=== PATIENT | male | born 1975 | race Caucasian/White ===

== ENCOUNTER 2022-01-29 16:59 | Emergency (ER) | payer MEDICAID ==
[~2022-01-29] VITALS: Ht 180.3 cm; Wt 68.0 kg
[2022-01-29 17:27] VITALS: BP 120/74
[2022-01-29] MEDS ORDERED: LIDOcaine 1% W/epiNEPHrine 1:100,000 20ml vial SQ ONE (20:15)
[2022-01-29] MEDS ORDERED: ibuprofen 200mg tablet PO ONE (20:15)
[2022-01-29] MEDS ORDERED: LIDOcaine 1% w/EPI 1:100,000 30ml vial (MDV) IJ ONE (20:25)
[2022-01-29] MEDS ORDERED: TETanus/Pertussis (Acell)/Diphther VAC/PF (Tdap-Adult) 0.5ml syringe IMVAC ONE (21:55)
== END 2022-01-29 22:15 | disposition home or self-care (01) ==
LOC: ER 17:00
DX: S61.213A Laceration without foreign body of left middle finger without damage to nail, initial encounter (principal); W45.8XXA Other foreign body or object entering through skin, initial encounter; Y93.89 Activity, other specified; Y92.89 Other specified places as the place of occurrence of the external cause; Y99.8 Other external cause status
CPT/HCPCS: 12001; 90471; 90715; 99283; A6449

== ENCOUNTER 2024-11-07 12:29 | Emergency (ER) | payer MEDICAID ==
[~2024-11-07] VITALS: Ht 180.3 cm; Wt 72.7 kg
--- NOTE | 2024-11-07 12:46 | Physician Documentation ---
History of Present Illness ~ Chief Complaint: Rib pain Stated Complaint: PAIN/DIFF BREATHING Time Seen by MD: 13:35 OK to notify your PCP?: Yes Primary Medical Doctor: NONE Source: patient Mode of Arrival: POV Exam Limitations: no limitations HPI 49-year-old male presents with localized right lateral lower rib pain for the past day. He has not taken anything for pain relief before arrival. No known trauma to that area. Tetanus within 5 Years?: No Allergies: Coded Allergies: No Known Allergies (Unverified , 01/29/22) Active Prescriptions See Medication Reconciliation Form. Medication Reconciliation Scheduled Lidocaine (Lidocaine), 1 PATCH TOP DAILY Review of Systems All Other Systems at this time: Reviewed and Negative Physical Exam Vital Signs: RN Vital Signs have been reviewed: Yes, Temperature: 98.3, Heart Rate: 90, Respiratory Rate: 16, BP: 133/92, Pulse Oximetry: 99, Weight: 72.730 Oxygen Flow Rate: 0 Pulse Oximetry Reflects: adequate oxygenation Physical Exam General: Alert, no distress. HEENT: No injection, moist mucous membranes. Neck: Full range of motion. Respiratory: No respiratory distress, equal chest rise and fall. Chest: No accessory muscle use. Localized tenderness to palpation of right lateral ribcage near rib #11. Cardiovascular: Regular rate and rhythm. Gastrointestinal: Nondistended. Extremities: Normal range of motion, no deformity. Neurologic: Oriented x4. Psychiatric: Normal mood and affect. Skin: Normal color, warm and dry. Progress Results/Orders Reviewed/noted all lab results: Yes Results/Orders Orders - JENNIFER MARTINEZP Uni Ribs With Pa Chest (11/07/24 13:12) Completed Orders - JENNIFER MARTINEZ Ibuprofen Tablet (Motrin Tablet) (11/07/24 12:45) Uni Ribs With Pa Chest (11/07/24 13:12) Electrocardiogram (11/07/24 ) Lidocaine 5% Patch (Lidoderm 5% Patch) (11/07/24 14:10) Medications Received in ER Medications (Trade) Dose Ordered Sig/Mirella Route PRN Reason Start Time Stop Time Status Last Admin Dose Admin (Motrin tablet) 800 mg ONCE ONCE PO 11/07/24 12:45 11/07/24 12:46 DC 11/07/24 13:36 800 MG (Lidoderm 5% Patch) 1 patch ONCE ONCE TP 11/07/24 14:10 11/07/24 14:11 DC 11/07/24 14:21 1 PATCH Vital Signs 11/07/24 11/07/24 11/07/24 12:38 12:40 14:29 Temp 98.3 98.3 Pulse 90 74 Resp 16 16 B/P (MAP) 133/92 135/91 Pulse Ox 99 96 O2 Flow Rate 0 EKG/XRAY/CT/US/VASC/MRI EKG : Additional Comment Electrocardiogram: as interpreted by me; sinus tachycardia, no axis deviation, no acute ischemia, normal intervals, no pre-excitation pattern. Rate: 100 bpm. Chest X-Ray : Additional Comments Right ribs and Chest x-ray: as interpreted by me; no large effusion, no large infiltrate, normal mediastinum, no rib fracture or dislocation. Heart Score: Heart Score Response (Comments) Value History N/A 0 EKG Normal 0 Age <45 0 Risk Factors 1 or 2 risk factors 1 Troponin N/A 0 Total 1 Medical Decision Making Findings 41-year-old male with spontaneous point tenderness to right lower lateral rib near rib 11 which is worse with a deep breath. Physical exam is unremarkable except for the localized tenderness to palpation. EKG was normal. Rib x-rays were negative for fracture. He is not having any nausea vomiting or diarrhea. We discussed that this is likely musculoskeletal in nature and he can take Tylenol and/or ibuprofen for pain relief at home. I prescribed lidocaine patches that he can use directly at the site and we applied 1 while here in the department prior to discharge. He should follow up with his primary care provider and return back here for any new or worsening symptoms. Differential Dx:Considerations: Include: Chest wall contusion, Flail chest, Pneumothorax, Pulmonary contusion, Tension pneumothorax Departure Disposition: HOME / SELF CARE / HOMELESS Impression: Primary Impression: Rib pain Condition: Stable Discharge Instructions: Rib Contusion Additional Instructions: Can take Tylenol and/or ibuprofen for pain relief at home. Follow up with her primary care provider in the next 3 days and return back here for any new or worsening symptoms. Referrals: NO PRIMARY CARE PROVIDER (PCP) Prescriptions Lidocaine (Lidocaine) 5 % Adh..patch 1 PATCH TOP DAILY for 5 Days, #5 PATCH 0 Refills Prov: JENNIFER MARTINEZ CLAY ARTIST 11/07/24 Education Educated: Patient Educated regarding: diagnosis, treatment, prognosis, need for follow up Additional Comment Medical Screen Exam This patient recieved a medical screening examination. After reviewing the individual's medical complaints with presenting symptoms and performing an appropriate physical examination, it was determined that no immediate life- threatening emergency medical condition is present. This individual is also not a women having contractions. Signature Scribe Signature: . Attestation: Scribed for Jennifer Martinez Medical Territory Manager by Jennifer Blake NP . 11/07/24 14:10 JENNIFER MARTINEZ CLAY ARTIST Nov 07, 2024 12:46
--- NOTE | 2024-11-07 12:47 | ELECTROCARDIOGRAPH REPORT ---
[facility] Test Date: 2024-11-07 Test Time: 12:33:37 Pat Name: LAUREN AVITIA Department: EMERGENCY ROOM Room: Gender: M Nursing Technician: DREA : 1975 Requested By: ELKIN NARANJO Order Number: [id number] Reading MD: Measurements Intervals [place] Rate: 100 P: 90 WV: 144 QRS: 74 QRSD: 81 T: 55 QT: 331 QTc: 427 Interpretive Statements Sinus tachycardia BELLO, consider biatrial enlargement Borderline T wave abnormalities Please click the below link to view image of tracing.
--- NOTE | 2024-11-07 13:24 | RADIOLOGY REPORT ---
CHEST RADIOGRAPH Indication: right lower lateral rib pain x 1 day, worse with deep breath Technique: Single frontal view of the chest with 4 views of the right ribs available for evaluation. Comparison: None FINDINGS: Lines and Tubes: None Lungs: No focal consolidation. Pleura: No effusion. No pneumothorax. Cardiomediastinal contours: Unremarkable Bones: No acute osseous abnormality. Linear lucency overlying the right distal clavicle. IMPRESSION: No acute cardiopulmonary disease. No acute rib fractures. Linear lucency overlying the right distal clavicle which appears to be from overlying structure as ex tends beyond the clavicle into the soft tissues. Correlation with point tenderness is recommended to exclude an acute fracture.
[2024-11-07] MEDS: ibuprofen tablet 400 MG TABLET PO ONE (13:36)
[2024-11-07] MEDS ORDERED: LIDO700A47 TOP (14:09)
[2024-11-07] MEDS: LIDOcaine 5% patch TP ONE (14:21)
[2024-11-07 14:29] VITALS: BP 135/91; PULSE 74; RESP 16; TEMP 98.3; O2SAT 96
== END 2024-11-07 14:28 | disposition home or self-care (01) ==
LOC: ER 12:30
DX: R07.81 Pleurodynia (principal)
CPT/HCPCS: 71101; 93005; 99283